=== PATIENT | female | born 1985 | race Caucasian/White ===

== ENCOUNTER 2019-05-26 20:12 | Emergency (ER) | payer OTHER ==
[2019-05-26 20:25] VITALS: BP 104/66
--- NOTE | 2019-05-26 21:50 | ED.ADGEN ---
PROVIDER NOTE PROVIDER NOTE PROVIDER NOTE This patient came into the emergency department during extremely high volume. Before being able to personally evaluate this patient, I was notified that the patient signed out AGAINST MEDICAL ADVICE. I did not evaluate this patient. Per protocol, a hepatitis panel and HIV screen were ordered and drawn in the emergency department. These results are pending at this time. FILIBERTO MEDINA MD May 26, 2019 21:50
[2019-05-26 21:57] LABS: ALBUMIN 4.4 g/dL (3.4-5.0); ALBUMIN/GLOBULIN RATIO 1.3 (1.0-1.7); CALCIUM 9.3 mg/dL (8.5-10.1); CREATININE 0.9 mg/dL (0.6-1.0); GFR 72.6; POTASSIUM 4.1 mmol/L (3.5-5.1); TOTAL BILIRUBIN 0.5 mg/dL (0.2-1.0); TOTAL PROTEIN 7.7 g/dL (6.4-8.2)
== END 2019-05-27 01:45 | disposition home or self-care (01) ==
LOC: ER 20:12
DX: S69.92XA Unspecified injury of left wrist, hand and finger(s), initial encounter (principal); Z53.21 Procedure and treatment not carried out due to patient leaving prior to being seen by health care provider; W46.0XXA Contact with hypodermic needle, initial encounter; Y93.89 Activity, other specified; Y92.89 Other specified places as the place of occurrence of the external cause; Y99.8 Other external cause status
CPT/HCPCS: 36415; 80053; 86703; 86705; 86709; 86803; 87340; 99281